=== PATIENT | female | born 1955 | race Caucasian/White ===

== ENCOUNTER 2017-02-21 06:09 | Day surgery (SDC) | payer OTHER ==
--- NOTE | 2017-02-18 22:55 | PREOPHP ---
DATE OF ADMISSION: 02/21/2017 HISTORY OF PRESENT ILLNESS: This is a 61-year-old female, 0, para 0. This patient had been referred to me recently due to bleeding that has been very heavy off and on with hemorrhages all th e time. This patient with a history of fibroids, history of amenorrhea for 1 year, 10 years ago, th en bleeding every 2 to 3 months with moderate to heavy bleeding. Not having any pain. This patient had been diagnosed with a fibroid uterus, morbid obesity, and perimenopausal bleeding for which an ultrasound was obtained. The ultrasound revealed that she had endometrial thickness. She had a bio psy that was negative and this was done in 2013. The patient had a CT scan that also revealed the e ndometrial hyperplasia. She is undergoing a D and C, hysteroscopy for further evaluation and treatm ent and to rule out malignancy due to her obesity and unopposed estrogen. The CT revealed that the uterus was 12.4 cm and that there was possibly a submucosal nodule that is either a fibroid or a may yp. This patient has been advised to go ahead with further diagnosis. PAST MEDICAL HISTORY: She had breast biopsy twice, negative and otherwise she has been healthy. Sh manoj smokes. She does not drink. She has no history of endocrine disease, seizures, or any other hist ory except for some hypertension and depression for which she is on Effexor, hydrochlorothiazide, an d losartan. There is no endocrine disease, neurological, orthopedic, hematological disease. 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 This patient is not sexually active. ALLERGIES: SHE DOES NOT HAVE ANY ALLERGIES. SOCIAL HISTORY: She has no history of drug addiction. FAMILY HISTORY: Unknown. The patient is adopted. PHYSICAL EXAMINATION: VITAL SIGNS: Stable. She is morbidly obese with 325 pounds. She is 5 feet 10 inches. She is afeb rile, pulse is 80, blood pressure is lately 140/90. HEAD AND NECK: Normal. BREASTS: Soft, nontender. No masses. CHEST: Clear. HEART: Normal sinus rhythm. LUNGS: Clear. ABDOMEN: Unable to palpate due to her obesity. GENITALIA: The uterus also nonpalpable, possibly fibroids with a hard, hypertrophic uterus. Unable to feel the fundus and adnexa. RECTAL AND EXTREMITIES: Normal. PLAN: She is undergoing a hysteroscopy, D and C. She has been advised of the possible risks and po ssible complications of the procedure with her alternatives and options. Written information was pr ovided. She had no more questions and agreed to go ahead with the procedure with full understanding and no more questions. DIAGNOSES: 1. Perimenopausal bleeding. 2. Uterine fibroids. 3. Endometrial hyperplasia. 4. Hypertension. 5. Morbid obesity. 6. Rule out malignancy. 7. By CT scan, fatty infiltration of the liver. Dictated By: RHIANNON CUELLO/NTS Conf#: [id number] DID#: [id number]
[~2017-02-21] VITALS: Ht 177.8 cm; Wt 170.1 kg
[2017-02-21] VITALS (10 sets, daily range): BP systolic 111–167; BP diastolic 65–83; PULSE 86–99; RESP 14–28; Ht 177.8 cm; Wt 170.1 kg
[~2017-02-21 06:09] MED LIST: CEFAZOLIN 2 GM/50 ML (PMX) 50 ML IVPB ONE; DEXTROSE 5%-LR 1,000 ML IV SCH
[2017-02-21] MEDS ORDERED: FENTAnyl 50 MCG/ML VIAL ONE ×2 (07:37→08:30)
[2017-02-21] MEDS ORDERED: MIDAZOLAM 1 MG/ML 2 ML INJ ONE (07:37)
--- NOTE | 2017-02-21 07:42 | HPN ---
Date/Time of Note Date/Time of Note DATE: 02/21/17 TIME: 07:41 Interval H&P Admission Note Pt. seen H&P reviewed: No system changes RHIANNON LEAL MD Feb 21, 2017 07:42
--- NOTE | 2017-02-21 07:59 | RADRPT ---
PROCEDURE: XR Chest. CLINICAL INDICATION: pre op d and c TECHNIQUE: Single AP view of the chest was obtained. COMPARISON: None FINDINGS: There is mild cardiomegaly with prominence of interstitial markings, likely due to congestive change s. There is no significant pleural effusion or pneumothorax. Osseous and soft tissue structures are unremarkable. IMPRESSION: Mild cardiomegaly with prominence of interstitial markings, likely due to congestive changes. RPTAT: EE Physician Diomedes Date Time Electronically viewed and signed by Guilherme Sanders Physician on 02/21/2017 07:59 RA/
[2017-02-21] MEDS ORDERED: CEFAZOLIN 1 GM INJ ONE (09:03)
[2017-02-21] MEDS ORDERED: LIDOCAINE 2% (SDV) 5 ML INJ ONE (09:03)
[2017-02-21] MEDS ORDERED: ONDANSETRON 4 MG INJ ONE (09:03)
[2017-02-21] MEDS ORDERED: PROPOFOL 40 ML ONE (09:03)
--- NOTE | 2017-02-21 09:22 | PD.PPDC ---
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
--- NOTE | 2017-02-21 09:26 | OPR ---
Date/Time of Note Date/Time of Note DATE: 02/21/17 TIME: 09:24 Operative Report Procedure Date: Feb 21, 2017 Preoperative Diagnosis postmenopausal bleeding morbid obesity fibroid uterus Postoperative Diagnosis complex endometrial hyperplasia with atypia Operation Performed hysteroscopy d&c frozen section Surgeon: RHIANNON LEAL MD Anesthesia: general Anesthesiologist: FRANKY KENNEDY MD Estimated Blood Loss: minimal Complications: None Pt Condition Post Procedure: stable Disposition: PACU RHIANNON LELA MD Feb 21, 2017 09:26
--- NOTE | 2017-02-21 10:09 | OPR ---
DATE OF OPERATION: 02/21/2017 PROCEDURE: Fractional dilatation and curettage, hysteroscopy, and frozen section. PREOPERATIVE DIAGNOSIS: Postmenopausal bleeding, morbid obesity and rule out malignancy. POSTOPERATIVE DIAGNOSIS: Endometrial hyperplasia with atypia. SURGEON: Dr. Tang. ANESTHESIOLOGIST: Dr. Ybarra. ANESTHESIA: General. DESCRIPTION OF PROCEDURE: Patient was given general anesthesia, placed in the supine lithotomy posi tion. The perineal and vaginal area was prepped and draped. Examination under anesthesia revealed that there was a normal cervix. The uterus was not palpated due to the obesity of the abdomen. The vaginal speculum was applied. The cervix was held with a forceps. Endocervical curettage was done . The uterus was sounded to 13 cm and the hysteroscope was applied. Visualization of the area reve aled that there was thickening of the lateral wall and anterior wall of the uterus with possible end ometrial malignancy. The curettage was done with the curet. The tissue was obtained and a frozen s ection was sent, and the diagnosis was endometrial hyperplasia with atypia. The HDA procedure that was going to be performed on her was not done because the possibility of a final report of endometri al cancer would contraindicate the procedure. The hysteroscopy was done and otherwise a couple of p ictures were taken. The patient had a history of fibroids as well. The procedure was finished by r emoving all the instruments. The patient tolerated the procedure well and left the OR awake and sta ble. Sponge counts, instrument counts were correct. Intravenous antibiotics were given for prophyl axis. Dictated By: RHIANNON CUELLO/KARRIE Conf#: [id number] DID#: [id number]
[2017-02-21] MEDS ORDERED: MEPERIDINE 25 MG INJ IV PRN (10:30)
[2017-02-21] MEDS ORDERED: HYDROmorphONE (0.2 MG/ML) 10ML SYG IV PRN ×2 (10:30)
[2017-02-21] MEDS ORDERED: FENTAnyl 50 MCG/ML VIAL IV PRN (10:30)
[2017-02-21] MEDS ORDERED: ONDANSETRON 4 MG INJ IV PRN (10:30)
[2017-02-21] MEDS ORDERED: DIPHENHYDRAMINE 50 MG INJ IV PRN (10:30)
[2017-02-21] MEDS ORDERED: ACETAMINOPHEN/CODEINE #3 TAB PO ONE (10:33)
== END 2017-02-21 11:11 | disposition home or self-care (01) ==
LOC: SDS 06:09
PROVIDERS: ATTEND Obstetrics & Gynecology
DX: N85.02 Endometrial intraepithelial neoplasia [EIN] (principal); E66.01 Morbid (severe) obesity due to excess calories; Z68.43 Body mass index [BMI] 50.0-59.9, adult; I10 Essential (primary) hypertension; E78.5 Hyperlipidemia, unspecified
CPT/HCPCS: 58558; 71010; 88305; 88331; J0690; J2250; J2405; J3010; J7121; Z7512; Z7610

== ENCOUNTER 2017-04-25 06:19 | Inpatient (IN) | END 2017-05-04 19:00 | disposition home or self-care (01) | DRG 742 | DX: N85.02 Endometrial intraepithelial neoplasia [EIN] (principal); Z68.43 Body mass index [BMI] 50.0-59.9, adult; I10 Essential (primary) hypertension; E66.01 Morbid (severe) obesity due to excess calories; F41.8 Other specified anxiety disorders; R06.83 Snoring; E11.9 Type 2 diabetes mellitus without complications; R09.02 Hypoxemia; Z72.0 Tobacco use; R19.7 Diarrhea, unspecified; N13.5 Crossing vessel and stricture of ureter without hydronephrosis ==

== ENCOUNTER 2019-01-29 22:49 | Emergency (ER) | payer OTHER ==
[~2019-01-29] VITALS: Wt 135.2 kg
[~2019-01-29 22:49] MED LIST changes: +BUS5 PO; -CEFAZOLIN 2 GM/50 ML (PMX) 50 ML IVPB ONE; -DEXTROSE 5%-LR 1,000 ML IV SCH; +DOCU-144 PO; +HYDR-3980 PO; +HYDR12.58 PO; +LOSA25TA12 PO; +METF500T NGT; +OMEP40CA6 PO; +PANT40TA4 PO; +VENL100T PO
[2019-01-30] MEDS ORDERED: PRED20TA PO (01:11)
[2019-01-30] MEDS ORDERED: D-ME473S2 PO (01:11)
[2019-01-30] MEDS ORDERED: DEXAMETHASONE 10 MG/ML 1 ML INJ IM ONE (01:30)
[2019-01-30 01:32] VITALS: BP 109/73; PULSE 97; RESP 18
--- NOTE | 2019-01-30 01:35 | ERD ---
ER Documentation Chief Complaint Chief Complaint COUGH, ST, SOB X'S 5 DAYS HPI This is a 63-year-old female with history of depression, not on any medications presents to the ED complaining of URI type symptoms. She reports 5 days of intermittent fevers, cough, sore throat, nasal congestion and shortness of breath. She denies any chest pain. Denies any associated nausea, vomiting, abdominal pain, wheezing or any other symptoms. She has not been taking any medications for this she reports multiple sick contacts. ROS All systems reviewed and are negative except as per history of present illness. Medications Home Meds Active Scripts Dextromethorphan Hb-Promethazine Hcl* (Promethazine DM* Syrup) 473 Ml Syrup, 5 ML PO Q6 PRN for COUGH for 7 Days, ML Prov:CHARLENEIGRSERA HERCULES PA-C 01/30/19 Prednisone* (Prednisone*) 20 Mg Tab, 40 MG PO DAILY for 4 Days, TAB Prov:SERA VILLANUEVA PA-C 01/30/19 Pantoprazole* (Pantoprazole*) 40 Mg Tablet., 40 MG PO DAILY@06 for 30 Days Prov:WILLIE ROLAND 05/04/17 Docusate Sodium* (Colace*) 100 Mg Capsule, 100 MG PO BID for 30 Days, #60 CAP Prov:WILLIE ROLAND 05/04/17 Hydrocodone/Acetaminophen ([place] 10-325 Tablet) 1 Each Tablet, 1 EACH PO Q4, #30 TAB Prov:WILLIE ROLAND 05/04/17 Metformin Hcl (Glucophage) 500 Mg Tablet, 500 MG NGT BID WITH MEALS for 30 Days, TAB Prov:JUAN MANUEL PACK 05/03/17 Reported Medications Venlafaxine Hcl* (Venlafaxine Hcl*) 100 Mg Tablet, 150 MG PO DAILY, TAB 05/03/17 Buspirone Hcl* (Buspar*) 5 Mg Tab, 5 MG PO DAILY, TAB 05/03/17 Losartan Potassium* (Losartan Potassium*) 25 Mg Tablet, 25 MG PO BID, TAB 04/25/17 Hydrochlorothiazide* (Hydrochlorothiazide*) 12.5 Mg Tablet, 12.5 MG PO DAILY, #30 TAB 04/25/17 Omeprazole* (Omeprazole*) 40 Mg Capsule.dr, 40 MG PO DAILY, #30 CAP 04/25/17 Allergies Allergies: Coded Allergies: No Known Allergy (Unverified , 02/20/17) PMhx/Soc History of Surgery: Yes (abdominal, hysterectomy ) Anesthesia Reaction: No Hx Neurological Disorder: No Hx Respiratory Disorders: No Hx Cardiac Disorders: Yes (htn) Hx Psychiatric Problems: No Hx Miscellaneous Medical Probl: Yes (dm ) Hx Alcohol Use: No Hx Substance Use: No Hx Tobacco Use: Yes Smoking Status: Former smoker Physical Exam Vitals Vital Signs Date Temp Pulse Resp B/P (MAP) Pulse Ox O2 O2 Flow FiO2 Time Delivery Rate 01/29/19 98.8 125 20 154/72 95 22:57 (99) Physical Exam Const: No acute distress. + Mildly anxious appearing. Head: Atraumatic Eyes: Normal Conjunctiva. PERRLA. EOMI. ENT: Normal External Ears, Nose and Mouth. + Posterior OP erythema. No tonsillar edema or exudates. Uvula midline. No sinus tenderness. Neck: Full range of motion. No meningismus. + Lymphadenopathy. Resp: Clear to auscultation bilaterally Cardio: Regular rate and rhythm, no murmurs Abd: Soft, non tender, non distended. Normal bowel sounds Skin: No petechiae or rashes Back: No midline or flank tenderness Ext: No cyanosis, or edema Neur: Awake and alert Psych: Normal Mood and Affect Results 24 hrs Current Medications Medications Dose Sig/Dick Start Time Status Last (Trade) Ordered Route PRN Stop Time Admin Dose Reason Admin 10 mg ONCE ONCE 01/30/19 01/30/19 Dexamethasone IM 01:30 01:21 (Decadron) 01/30/19 01:31 Procedures/MDM LABS & DIAGNOSTIC IMAGING: PROCEDURE: Chest. CLINICAL INDICATION: Cough. TECHNIQUE: Single frontal view of the chest was obtained. COMPARISON: 02/21/2017. FINDINGS: The cardiac silhouette is within normal limits. The aortic arch is unremarkable. There is no focal consolidation, vascular congestion or pleural effusion. There is no pneumothorax. IMPRESSION: No evidence for active cardiopulmonary disease. .Wade Faria MD, Date Time Electronically viewed and signed by .Wade Faria MD, on 01/30/2019 00:59 .T/ CC: SERA VILLANUEVA PA-C PROCEDURES: 12-lead EKG interpretation as interpeted by Dr. Brown Sinus tachycardia with a rate of 102 beats per minute Normal axis Normal intervals No acute ST or T wave changes suggestive of acute ischemia or STEMI. ED COURSE: The patient was given IM Decadron The medication was well tolerated and the patient had market improvement in symptoms. The patient remained stable throughout ED course. MEDICAL DECISION MAKING: This is 63-year-old female presents with URI type symptoms, likely viral in etiology. Pt is nontoxic appearing, well hydrated and tolerating PO. No signs of hypoxia or acute respiratory distress. No e/o of bacterial dz on physical exam. Chest x-ray is negative for any acute bacterial disease or cardiac symptoms. EKG is unremarkable. I have low suspicion for ACS, HI, PE/DVT or any other emergent cardiac process. Pt will be treated with outpatient supportive care; no indications for antibiotics at this time. Recommend following up with pin feather machine operator in 2-4 days, otherwise return to the ED for worsening fevers, difficulty breathing, difficulty swallowing or any other concern. PRESCRIPTIONS: Prednisone, promethazine SPECIALIST FOLLOW UP RECOMMENDED: None Patient has been advised to follow up with primary care in 1-2 days. Blood Pressure Assessment: Patient's blood pressure was elevated (>120/80) but appears stable without evidence of hypertension emergency or urgency. The patient was counseled about the risks of hypertension and urged to pursue outpatient monitoring and therapy within a week with their primary care physician. Departure Diagnosis: Primary Impression: Upper respiratory infection URI type: unspecified URI Qualified Codes: J06.9 - Acute upper respiratory infection, unspecified Condition: Stable Patient Instructions: Preventing Common Respiratory Infections Referrals: [facility] YOU HAVE RECEIVED A MEDICAL SCREENING EXAM AND THE RESULTS INDICATE THAT YOU DO NOT HAVE A CONDITION THAT REQUIRES URGENT TREATMENT IN THE EMERGENCY DEPARTMENT. FURTHER EVALUATION AND TREATMENT OF YOUR CONDITION CAN WAIT UNTIL YOU ARE SEEN IN YOUR DOCTORS OFFICE WITHIN THE NEXT 1-2 DAYS. IT IS YOUR RESPONSIBILITY TO MAKE AN APPOINTMENT FOR FOLOW-UP CARE. IF YOU HAVE A PRIMARY DOCTOR --you should call your primary doctor and schedule and appointment IF YOU DO NOT HAVE A PRIMARY DOCTOR YOU CAN CALL OUR PHYSICIAN REFERRAL HOTLINE AT . IF YOU CAN NOT AFFORD TO SEE A PHYSICIAN YOU CAN CHOSE FROM THE FOLLOWING [facility] INSTITUTIONS: [facility] [id number] [place] [address] [facility] [address] [place] [address] [facility] [address] [place] [address] [facility] URGENT CARE/SPECIALTIES [facility] Additional Instructions: Call your primary care doctor TOMORROW for an appointment during the next 2-4 days and bring all the information and medications prescribed. If the symptoms get worse and your provider is unavailable, return to the Emergency Department immediately. SERA VILLANUEVA PA-C January 30, 2019 01:35
--- NOTE | 2019-01-31 14:31 | RADRPT ---
Vent Rate: 102 bpm RR Interval: 0 msec AK Interval: 146 msec QRS Duration: 82 msec QT Interval: 360 msec QTC Interval: 469 msec P-R-T Mobile: 67 - -30 - 66 degrees Sinus tachycardia Possible Left atrial enlargement Left axis deviation Abnormal ECG Electronically Signed By: [facility]
== END 2019-01-30 01:34 | disposition home or self-care (01) ==
LOC: FTE 22:49
DX: J06.9 Acute upper respiratory infection, unspecified (principal); I10 Essential (primary) hypertension; E11.9 Type 2 diabetes mellitus without complications; Z87.891 Personal history of nicotine dependence; Z79.84 Long term (current) use of oral hypoglycemic drugs
CPT/HCPCS: 71045; 93005; 96372; J1100; Z7502